=== PATIENT | male | born 1965 | race Caucasian/White ===

== ENCOUNTER 2020-03-17 17:48 | Observation (INO) ==
[2020-03-17] MEDS ORDERED: SODIUM CHLORIDE 0.9% 500 ML IV STA (18:10)
[2020-03-17] MEDS ORDERED: CLINDAMYCIN INJ 900 MG in PREMIX 1 EACH IV STA (18:11)
[2020-03-17 18:40] LABS: Basophils # 0.1 10*3/uL (0.0-0.2); Basophils % 0.9 % (0.0-0.8); Eosinophils # 0.5 10*3/uL (0.0-0.87); Eosinophils % 4.4 % (0.00-10.9); Hematocrit 47.9 VOL% (42.0-52.0); Immature Granulocytes % 0.6 %; Immature Granulocytes Absolute 0.06 #; Lymphocytes # 2.4 10*3/uL (1.4-4.0); Lymphocytes % 22.3 % (21.2-54.2); Mean Corpuscular HGB Conc 35.5 GM/DL (32-36); Mean Corpuscular Volume 84.2 FL (87-102); Mean Platelet Volume 10.6 FL (9.6-12.0); Monocytes % 9.5 % (1.7-12.7); Neutrophils % 62.3 % (38.7-73.9); Platelet Count 133 T/CUMM (130-400); Red Blood Count 5.69 MC/CUMM (3.8-5.5); Red Cell Distribution Width 13.2 % (9.3-17.3); White Blood Count 10.6 T/CUMM (4-12)
[2020-03-17 18:59] LABS: Calcium 9.4 MG/DL (8.5-10.1); Osmolality,Calculated 271.7 MOS/KG (273-304)
[2020-03-17] MEDS ORDERED: ONDANSETRON 4 MG/2 ML VIAL IV PRN (19:26)
[2020-03-17] MEDS ORDERED: ACETAMINOPHEN 325 MG TABLET PO PRN (19:26)
[2020-03-17] MEDS: SODIUM CHLORIDE 0.45% 1,000 ML IV SCH (19:35)
[2020-03-17] MEDS: metroNIDAZOLE INJ 500 MG in PREMIX 1 EACH IV SCH (19:56)
[2020-03-17] MEDS ORDERED: hydrALAZINE 20 MG/1 ML VIAL IV PRN (21:23)
[2020-03-17] MEDS: PIPERACILLIN/TAZOBACTAM 3,375 MG in SODIUM CHLORIDE 0.9% 100 ML IV SCH (21:57)
[2020-03-17] MEDS: atenoloL 50 MG TABLET PO SCH (22:00)
[2020-03-17] MEDS: metFORMIN 500 MG TABLET PO SCH (22:00)
[2020-03-18] MEDS: metroNIDAZOLE INJ 500 MG in PREMIX 1 EACH IV SCH ×2 (04:30→13:18)
[2020-03-18] MEDS: PIPERACILLIN/TAZOBACTAM 3,375 MG in SODIUM CHLORIDE 0.9% 100 ML IV SCH ×2 (05:35→13:19)
[2020-03-18] MEDS ORDERED: LIDOCAINE 1%/EPI INJ 20 ML VIAL ONE (08:47)
[2020-03-18] MEDS ORDERED: BUPIVACAINE MPF 0.25% 30 ML VIAL ONE (08:47)
[2020-03-18] MEDS ORDERED: PANTOPRAZOLE 40 MG TABLET PO SCH (09:00)
[2020-03-18] MEDS: metFORMIN 500 MG TABLET PO SCH (09:16)
[2020-03-18] MEDS: atenoloL 50 MG TABLET PO SCH (09:17)
[2020-03-18] MEDS: SODIUM CHLORIDE 0.45% 1,000 ML IV SCH ×2 (09:18→14:17)
[2020-03-18] MEDS ORDERED: MEPERIDINE 25 MG/1 ML VIAL IV PRN (09:24)
[2020-03-18] MEDS ORDERED: PROMETHAZINE INJ 25 MG in SODIUM CHLORIDE 0.9% 50 ML IV PRN (09:24)
[2020-03-18] MEDS ORDERED: diphenhydrAMINE 50 MG/1 ML VIAL IV PRN (09:24)
[2020-03-18] MEDS ORDERED: ONDANSETRON 4 MG/2 ML VIAL IV PRN (09:24)
[2020-03-18] MEDS ORDERED: fentaNYL 100 MCG/2 ML VIAL ONE (10:00)
[2020-03-18] MEDS ORDERED: propofoL 200 MG/20 ML VIAL IV ONE (10:00)
[2020-03-18] MEDS ORDERED: KETAMINE 500 MG/10 ML VIAL ONE (10:00)
[2020-03-18] MEDS ORDERED: SEVOFLURANE 1 UNIT/15 MINUTE INH ONE (10:00)
[2020-03-18] MEDS ORDERED: KETOROLAC 30 MG/1 ML VIAL ONE (10:00)
[2020-03-18] MEDS ORDERED: ONDANSETRON 4 MG/2 ML VIAL ONE (10:00)
[2020-03-18] MEDS ORDERED: LIDOCAINE 2% 5 ML VIAL ONE (10:00)
[2020-03-18] MEDS ORDERED: ALBUTEROL INHALER 18 GM INH ONE (10:01)
[2020-03-18] MEDS ORDERED: LACTATED RINGERS 1,000 ML IV ONE (10:01)
[2020-03-18 11:35] VITALS: BP 145/91
== END 2020-03-18 13:33 | disposition home or self-care (01) ==
LOC: N.ED 17:48 → N.EDINP 17:48 → N.3E 20:45
PROVIDERS: ADMIT Surgery; ATTEND Surgery